=== PATIENT | male | born 1995 | race Two or more races ===

== ENCOUNTER 2019-12-27 01:02 | Emergency (ER) | payer SELFPAY ==
[~2019-12-27] VITALS: Ht 182.9 cm; Wt 79.9 kg
--- NOTE | 2019-12-27 01:16 | NUR ---
BIBRA 59 FROM HOME C/O WITNESSED SEIZURE EPISODE FOR 30 SEC +FACIAL TRAUMA. PLACED ON A MONITOTR. WILL CONT TO MONITOR ,
[2019-12-27] MEDS: IV NS 0.9% 1,000 ML BAG IV ONE (01:25)
[2019-12-27] MEDS: LORAZEPAM INJ 2 MG/ML VIAL IVP ONE (01:25)
[2019-12-27] MEDS: LEVETIRACETAM (500MG) 500 MG in IV NS 0.9% 100 ML IV ONE (01:25)
--- NOTE | 2019-12-27 01:26 | NUR ---
PT REFUSED BLOOD DRAW, URINE TEST AND ALL MEDS AND STATED " I JUST WANNA LEAVE". D4R. GOVIND MADE AWARE. Patient does not wish to proceed with medical care recommended by Dr. FAUST. Patient given information related to possible complications, up to and including , which could occur as a result of leaving the hospital at this time. Patient verbalizes understanding of risks involved due to leaving against medical advice. Patient has signed AMA form. iv line was d/c'd prior to discharge w/ no compliaction.
[2019-12-27 01:30] VITALS: BP 144/65
== END 2019-12-27 01:31 | disposition left against medical advice (07) ==
LOC: ER 01:03
DX: G40.909 Epilepsy, unspecified, not intractable, without status epilepticus (principal)
CPT/HCPCS: 99283; J1953; J7030